=== PATIENT | male | born 1990 | race Two or more races ===

== ENCOUNTER 2020-02-26 04:54 | Emergency (ER) | payer BC ==
[~2020-02-26] VITALS: Ht 175.3 cm; Wt 55.2 kg
[2020-02-26] MEDS ORDERED: ondansetron/PF 4mg/2ml inj IV ONE ×2 (05:30→06:15)
[2020-02-26] MEDS ORDERED: normal saline 1000ml 1,000 ML IV ONE (05:30)
--- NOTE | 2020-02-26 05:44 | NUR ---
Pt medicated, helped into position of comfort and given warm blankets, lights dimmed.
[2020-02-26 05:58] LABS: ALANINE AMINOTRANSFERASE 28 U/L (12-78); ALBUMIN 5.2 G/DL (3.4-5.0); ALBUMIN/GLOBULIN RATIO 1.3 (1.1-1.5); ALKALINE PHOSPHATASE 71 IU/L (46-116); ANION GAP 16 (8-16); ASPARTATE AMINO TRANSFERASE 24 U/L (10-37); BILIRUBIN,TOTAL 3.5 MG/DL (0.1-1.0); BLOOD UREA NITROGEN 33 MG/DL (7-18); CALCIUM 10.3 MG/DL (8.5-10.1); CHLORIDE 98 MMOL/L (99-107); CREATININE 1.22 MG/DL (0.60-1.10); GLUCOSE 135 MG/DL (70-104); LIPASE 135 U/L (73-393); POTASSIUM 3.3 MMOL/L (3.5-5.1); SODIUM 140 MMOL/L (135-145); TOTAL CARBON DIOXIDE 26.5 MMOL/L (24-32); TOTAL PROTEIN 9.3 G/DL (6.4-8.2); eGFR 71 ML/MIN
[2020-02-26 06:02] LABS: BASOPHILS % (AUTO) 0.3 % (0-1); EOSINOPHILS % (AUTO) 0 % (0-6); HEMOGLOBIN 16.7 g/dl (14.0-17.9); LYMPHOCYTES # (AUTO) 2.2 X10'3 (1.1-4.8); LYMPHOCYTES % (AUTO) 18.5 % (21-51); MEAN CORPUSCULAR HEMOGLOBIN 30.3 PG (27.0-31.0); MEAN CORPUSCULAR VOLUME 88.9 FL (78-98); MEAN PLATELET VOLUME 9.8 FL (7.4-10.4); MONOCYTES # (AUTO) 0.7 X10'3 (0-0.9); MONOCYTES % (AUTO) 5.9 % (2-12); NEUTROPHILS # (AUTO) 8.9 X10'3 (1.8-7.7); NEUTROPHILS % (AUTO) 75.3 % (42-75); PLATELET COUNT 382 X10'3 (140-440); RED BLOOD COUNT 5.51 X10'6 (4.70-6.10); RED CELL DISTRIBUTION WIDTH 13.3 % (11.5-14.5); WHITE BLOOD COUNT 11.8 X10'3 (4.5-11.0)
[2020-02-26] MEDS: morphine 4 MG/ML inj SYRINge IV PRN ×2 (06:26→07:42)
--- NOTE | 2020-02-26 07:15 | NUR ---
Pt requesting ice chips. Pt received earlier and ate all from prior shift. Pt had bedside ultrasound and awaiting report. Pt encourage to remain NPO until result is back. Pt went to sink and reports "I have to rinse my mouth out, its so dry."
[2020-02-26] MEDS ORDERED: proCHLORperazine 10 MG/2 ml inj IV ONE (07:50)
[2020-02-26] MEDS ORDERED: PROM12.512 PO (08:02)
--- NOTE | 2020-02-26 08:10 | NUR ---
PT MEDICATED FOR N/V. PT TO HAVE ORAL CHALLENGE AND DC HOME IF TOLLERATING WITHOUT N/V
[2020-02-26 09:20] VITALS: BP 122/52
== END 2020-02-26 09:26 | disposition home or self-care (01) ==
LOC: ER 04:56
DX: R11.2 Nausea with vomiting, unspecified (principal); R10.10 Upper abdominal pain, unspecified; E80.7 Disorder of bilirubin metabolism, unspecified
CPT/HCPCS: 36415; 76700; 80053; 83690; 85025; 96361; 96374; 96375; 96376; 99284; J0780; J2270; J2405; J7030; 96360